=== PATIENT | male | born 1995 | race Caucasian/White ===

== ENCOUNTER → 2020-03-16 11:58 | Outpatient (BNVA) | payer SELFPAY | PROVIDERS: PCP Nurse Practitioner; Visit Provider Nurse Practitioner Family | DX: Z79.899 Other long term (current) drug therapy (principal); W57.XXXA Bitten or stung by nonvenomous insect and other nonvenomous arthropods, initial encounter; R53.83 Other fatigue; E55.9 Vitamin D deficiency, unspecified; E78.2 Mixed hyperlipidemia; L30.9 Dermatitis, unspecified | CPT/HCPCS: 80053; 80061; 81001; 82306; 83036; 84443; 85025; 86618; 86666; 86757; 86803 ==